=== PATIENT | female | born 1970 | race Caucasian/White ===

== ENCOUNTER 2019-01-01 10:48 | Emergency (ER) | payer OTHER ==
[~2019-01-01] VITALS: Ht 172.7 cm; Wt 81.2 kg
[~2019-01-01 10:48] MED LIST: LAC PO; MACROBID100 MG PO
[2019-01-01 10:53] VITALS: Ht 172.7 cm; Wt 81.2 kg
[2019-01-01 13:28] VITALS: BP 121/60
== END 2019-01-01 13:28 | disposition home or self-care (01) ==
LOC: ED 10:48
DX: M75.31 Calcific tendinitis of right shoulder (principal); Z88.0 Allergy status to penicillin; Z98.890 Other specified postprocedural states
CPT/HCPCS: Q0092

== ENCOUNTER 2019-10-14 08:56 | Emergency (ER) | payer OTHER ==
[~2019-10-14] VITALS: Ht 172.7 cm; Wt 87.1 kg
[2019-10-14 09:06] VITALS: Ht 172.7 cm; Wt 87.1 kg
[2019-10-14 11:12] VITALS: BP 120/76
== END 2019-10-14 11:12 | disposition home or self-care (01) ==
LOC: ED 08:56
DX: J06.9 Acute upper respiratory infection, unspecified (principal); Z88.0 Allergy status to penicillin
CPT/HCPCS: 87804

== ENCOUNTER 2020-02-12 19:53 | Emergency (ER) | payer OTHER, SELFPAY ==
[~2020-02-12] VITALS: Ht 170.2 cm; Wt 84.4 kg
[2020-02-12 19:56] VITALS: Ht 170.2 cm; Wt 84.4 kg
[2020-02-12 23:18] VITALS: BP 122/67
== END 2020-02-12 23:18 | disposition home or self-care (01) ==
LOC: ED 19:53
DX: R05 Cough (principal); J02.9 Acute pharyngitis, unspecified; R53.83 Other fatigue; R10.9 Unspecified abdominal pain; Z88.0 Allergy status to penicillin; Z98.51 Tubal ligation status; Z20.828 Contact with and (suspected) exposure to other viral communicable diseases
CPT/HCPCS: U0003-CS